=== PATIENT | female | born 1975 | race Caucasian/White ===

== ENCOUNTER 2019-07-11 14:47 | Inpatient (IN) | payer OTHER ==
[~2019-07-11] VITALS: Ht 170.2 cm; Wt 78.7 kg
[2019-07-11 15:30] LABS: INR 1.08 (0.9-1.15); Partial Thromboplastin Time 25.4 sec (23.64-32.05)
[2019-07-11 15:36] LABS: Alanine Aminotransferase 20 U/L (13-56); Albumin 4.2 g/dL (3.4-5.0); Anion Gap 11 (5-15); Aspartate Aminotransferase 17 U/L (15-37); BUN/Creatinine Ratio 18.9; Blood Urea Nitrogen 14 mg/dL (7-18); Carbon Dioxide 22 mmol/L (21-32); Chloride 107 mmol/L (98-107); GFR African American 109 mL/min; GFR Non-African American 90 mL/min; Glucose 94 mg/dL (74-106); Potassium 3.6 mmol/L (3.5-5.1); Sodium 140 mmol/L (136-145)
[2019-07-11 15:41] LABS: Alkaline Phosphatase 42 U/L (45-117); Bilirubin, Total 0.4 mg/dL (0.2-1.0); Total Protein 7.6 g/dL (6.4-8.2)
[2019-07-11] MEDS ORDERED: MORPHINE SULF INJ 2 MG/ML SYRINGE 1ML IV ONE (16:00)
[2019-07-11] MEDS ORDERED: ONDANSETRON HCL 4 MG/2 ML VIAL IV ONE (16:00)
[2019-07-11 16:26] LABS: Basophils # (auto) 0.1 uL; Eosinophils # (auto) 0 uL; Eosinophils % (auto) 0.7 % (0.0-7.0); Hematocrit 40.8 % (36.0-46.0); Hemoglobin 13.9 g/dL (12.2-16.2); Lymphocytes # (auto) 1.8 uL; Lymphocytes % (auto) 34.3 % (10.0-50.0); Mean Corpuscular Hemoglobin 31.9 pg (28.0-32.0); Mean Corpuscular Hgb Conc. 34.1 g/dL (32.0-36.0); Mean Corpuscular Volume 93.6 fL (80.0-100.0); Monocytes # (auto) 0.3 uL; Monocytes % (auto) 5.8 % (0.0-12.0); Neutrophils # (auto) 3.1 uL; Neutrophils % (auto) 58.2 % (37.0-80.0); Nucleated Red Blood Cells % 0.1 %; Platelet Count (auto) 240 10^3/uL (140-450); Red Blood Cells 4.36 10^6/uL (4.0-5.20); Red Cell Distribution Width 11.8 % (11.8-14.3); White Blood Cell 5.3 10^3/uL (4.4-10.8)
[2019-07-11 19:37] LABS: Urine WBC None Seen /hpf (0 - 5)
[2019-07-11 19:45] LABS: Urine Bacteria NONE SEEN /hpf (None Seen); Urine Blood Negative /uL (Negative); Urine Specific Gravity 1.007 (1.001-1.035)
[2019-07-11] MEDS ORDERED: LABETALOL HCL 5 MG/ML 4ML SYRINGE IV ONE (19:45)
[2019-07-11] MEDS ORDERED: ASPirin 81 mg TAB PO ONE (19:45)
[2019-07-11 20:08] LABS: Alcohol, Urine < 3.0 mg/dL (0-5); Amphetamine Screen, Urine NEGATIVE (NEGATIVE); Barbiturate Scree,Urine NEGATIVE (NEGATIVE); Benzodiazephine Screen, Urine NEGATIVE (NEGATIVE); Cannabinoid Screen, Urine NEGATIVE (NEGATIVE); Cocaine Screen, Urine NEGATIVE (NEGATIVE); Opiate Scree,Urine NEGATIVE (NEGATIVE); Phencyclidine Screen, Urine NEGATIVE (NEGATIVE)
[2019-07-11] MEDS ORDERED: NITROGLYCERIN 0.4 MG SL TAB SL PRN ×2 (21:00)
[2019-07-11] MEDS ORDERED: cloNIDine HCL 0.1 MG TAB PO PRN (21:00)
[2019-07-11] MEDS ORDERED: ACETAMINOPHEN 325 MG TAB PO PRN (21:00)
[2019-07-11] MEDS: MORPHINE SULFATE 4 MG/ML SYR/VIAL IV PRN ×2 (21:56→23:54)
[2019-07-11] MEDS: ONDANSETRON HCL 4 MG/2 ML VIAL IV PRN (21:57)
[2019-07-11] MEDS ORDERED: ATORVASTATIN 20 MG TAB PO SCH (22:00)
[2019-07-11] MEDS: METOPROLOL TARTRATE 25 MG TAB PO SCH (22:07)
[2019-07-11] MEDS: ENOXAPARIN SOD 60 MG/0.6 ML SYRINGE SC SCH (22:07)
[2019-07-11 23:55] VITALS: BP 159/91
[2019-07-11] MEDS: ZOLPIDEM TARTRATE 5 MG TAB PO PRN (23:59)
[2019-07-12] MEDS ORDERED: CLON0.1T PO (00:19)
--- NOTE | 2019-07-12 00:41 | NUR ---
Admitted 07/11/19 at 2338 Telemetry admit from ER LEANNE MERINO admitted to Telemetry unit after SBAR received. Patient oriented to ELVIRA RIVAS, ro RN, unit, room, bed, and unit policies regarding patient care and visiting hours. Patient now on continuous telemetry monitoring, tele box # 12 and telemetry reading on arrival to unit is NSR . Patient placed on bedside oxygen, weighed by bed scale and encouraged to call if they need something. All questions and concerns addressed, patient verbalized understanding. Note: c/o chest pain 7/10 pinching/burning. Dr. Ni on floor, notified. Morphine 2mg IV given. B/P 159/91, HR 86, 02 2L n/c applied.
[2019-07-12 05:36] VITALS: BP 101/73
[2019-07-12 06:31] LABS: Basophils # (auto) 0 uL; Basophils % (auto) 0.7 % (0.0-2.0); Eosinophils # (auto) 0.1 uL; Eosinophils % (auto) 1.6 % (0.0-7.0); Hematocrit 37.7 % (36.0-46.0); Hemoglobin 12.9 g/dL (12.2-16.2); Lymphocytes # (auto) 2.2 uL; Lymphocytes % (auto) 45.5 % (10.0-50.0); Mean Corpuscular Hemoglobin 32.1 pg (28.0-32.0); Mean Corpuscular Hgb Conc. 34.2 g/dL (32.0-36.0); Mean Corpuscular Volume 94.1 fL (80.0-100.0); Monocytes # (auto) 0.4 uL; Monocytes % (auto) 8.1 % (0.0-12.0); Neutrophils # (auto) 2.2 uL; Neutrophils % (auto) 44.1 % (37.0-80.0); Nucleated Red Blood Cells % 0.2 %; Platelet Count (auto) 216 10^3/uL (140-450); Red Blood Cells 4.01 10^6/uL (4.0-5.20); Red Cell Distribution Width 11.9 % (11.8-14.3); White Blood Cell 4.9 10^3/uL (4.4-10.8)
[2019-07-12 06:50] LABS: Potassium 3.6 mmol/L (3.5-5.1)
[2019-07-12 07:08] LABS: BUN/Creatinine Ratio 14.5; Calcium 8.7 mg/dL (8.5-10.1)
--- NOTE | 2019-07-12 07:45 | NUR ---
Opening Shift Note: Assumed care of patient, awake and alert. No S/S of distress/SOB or pain. Patient states "I feel much better than yesterday." Bed in lowest locked position, side rails up x2, call light within reach. Family at bedside. Patient instructed on POC and to call for assist PRN, will continue to monitor for changes Q1hr and PRN.
[2019-07-12 09:00] VITALS: BP 124/77
[2019-07-12] MEDS: ENOXAPARIN SOD 60 MG/0.6 ML SYRINGE SC SCH (09:28)
[2019-07-12] MEDS: DOCUSATE SOD 100 MG CAP PO SCH (09:29)
[2019-07-12] MEDS: LISINOPRIL 10 MG TAB PO SCH (09:29)
[2019-07-12] MEDS: METOPROLOL TARTRATE 25 MG TAB PO SCH ×2 (09:30→20:36)
[2019-07-12] MEDS: ASPirin 81 mg TAB PO SCH (09:30)
--- NOTE | 2019-07-12 09:45 | NUR ---
Dr. Ignacio: Dr Mark ignacio
[2019-07-12] MEDS ORDERED: CLOPIDOGREL BISULFATE 75 MG TAB PO SCH (10:00)
[2019-07-12] MEDS ORDERED: MAGNESIUM SULFATE 1GM/100ML 100 ML IV ONE (10:30)
[2019-07-12] MEDS ORDERED: CALCIUM GLUC 4.65meq/50ml D5AE 50 ML IV ONE (10:30)
[2019-07-12] MEDS: ONDANSETRON HCL 4 MG/2 ML VIAL IV PRN (12:38)
[2019-07-12 13:00] VITALS: BP 121/76
--- NOTE | 2019-07-12 15:25 | NUR ---
IV removal: Left hand 20 G IV partially pulled out while patient was sleeping. IV DC'd with clean sterile technique, catheter fully intact. Pressure dressing applied to site. Patient tolerated well. IV insertion: 22 guage IV access obtained, via clean sterile technique by inserting gauge catheter at left hand after 2 attempt. IV secured properly. No trauma to site. Patient tolerated well.
[2019-07-12] MEDS ORDERED: HYDROcodone-ACET 10/325MG TAB PO PRN (16:45)
[2019-07-12 17:00] VITALS: BP 136/76
[2019-07-12] MEDS ORDERED: MORPHINE SULF INJ 2 MG/ML SYRINGE 1ML IV PRN (17:00)
--- NOTE | 2019-07-12 17:04 | NUR ---
Chest pain: Patient states chest pain 7/[address] Flores. 12 Lead ekg performed at 1651. At 1653 patient states pain is "much less, maybe a 3." Dr. Flores read and signed EKG at 1656, per Dr. "NSR with no ST-changes, normal EKG." Pain reassessed at 1703, patient states pain at 2/10.
--- NOTE | 2019-07-12 19:05 | NUR ---
Closing note: Patient laying in bed, no S/S of distress or SOB. Patient states pain of 2/10. Care endorsed to NOC RN Apol.
--- NOTE | 2019-07-12 19:16 | NUR ---
Opening Shift Note Assumed care of patient, awake and alert. No S/S of distress/SOB or pain, denies chest pain. Instructed on POC and to call for assist PRN, will continue to monitor for changes Q1hr and PRN. Call ng with in reach, bed in low position.
[2019-07-12 21:40] VITALS: BP 96/55
[2019-07-12] MEDS ORDERED: ATORVASTATIN 20 MG TAB PO SCH (22:00)
[2019-07-12] MEDS: ZOLPIDEM TARTRATE 5 MG TAB PO PRN (22:07)
[2019-07-13 04:55] VITALS: BP 99/64
[2019-07-13 06:07] LABS: Basophils # (auto) 0 uL; Basophils % (auto) 0.8 % (0.0-2.0); Eosinophils # (auto) 0.1 uL; Eosinophils % (auto) 2.9 % (0.0-7.0); Hematocrit 40.3 % (36.0-46.0); Hemoglobin 13.9 g/dL (12.2-16.2); Lymphocytes # (auto) 1.8 uL; Lymphocytes % (auto) 40.5 % (10.0-50.0); Mean Corpuscular Hemoglobin 32.2 pg (28.0-32.0); Mean Corpuscular Hgb Conc. 34.4 g/dL (32.0-36.0); Mean Corpuscular Volume 93.7 fL (80.0-100.0); Monocytes # (auto) 0.4 uL; Monocytes % (auto) 9.3 % (0.0-12.0); Neutrophils % (auto) 46.5 % (37.0-80.0); Platelet Count (auto) 211 10^3/uL (140-450); Red Cell Distribution Width 11.9 % (11.8-14.3); White Blood Cell 4.4 10^3/uL (4.4-10.8)
[2019-07-13 06:31] LABS: Potassium 3.8 mmol/L (3.5-5.1)
[2019-07-13 06:46] LABS: Albumin 3.7 g/dL (3.4-5.0); BUN/Creatinine Ratio 14.6; Bilirubin, Total 0.8 mg/dL (0.2-1.0); Calcium 8.4 mg/dL (8.5-10.1); Magnesium 2.1 mg/dL (1.6-2.6); Phosphorus 3.4 mg/dL (2.5-4.90); Total Protein 6.6 g/dL (6.4-8.2)
--- NOTE | 2019-07-13 07:30 | NUR ---
Opening Shift Note Assumed care of patient, awake and alert. No S/S of distress/SOB, no pain noted or reported. Updated on POC and instructed to call for assistance as needed, patient verbalized understanding. Bed locked in lowest position, side rails up x2, call light within reach. Will continue to monitor for changes Q1hr and PRN.
[2019-07-13 09:00] VITALS: BP 121/78
[2019-07-13] MEDS: METOPROLOL TARTRATE 25 MG TAB PO SCH (09:34)
[2019-07-13] MEDS: DOCUSATE SOD 100 MG CAP PO SCH (09:35)
[2019-07-13] MEDS: LISINOPRIL 10 MG TAB PO SCH (09:35)
[2019-07-13] MEDS: ASPirin 81 mg TAB PO SCH (09:35)
[2019-07-13] MEDS ORDERED: ENOXAPARIN SOD 40 MG/0.4 ML SYRINGE SC SCH ×2 (10:00)
[2019-07-13 13:17] VITALS: BP 103/70
--- NOTE | 2019-07-13 13:40 | NUR ---
THYROID BIOPSY THYROID BIOPSY COMPLETED BY DR AYALA IN ULTRASOUND. PT TOLERATED WELL. NO BLEEDING.SPECIMEN TAKEN BY DR HERRERA PATHOLOGIST.
[2019-07-13] MEDS ORDERED: DOCU100C8 PO (15:20)
[2019-07-13] MEDS ORDERED: LISI10TA6 PO (15:20)
[2019-07-13] MEDS ORDERED: ACE325T PO (15:20)
[2019-07-13] MEDS ORDERED: ASPI81CH43 PO (15:20)
[2019-07-13] MEDS ORDERED: MET25T PO (15:20)
[2019-07-13] MEDS ORDERED: ATOR20TA50 PO (15:20)
[2019-07-13] MEDS ORDERED: CALC600T80 PO (15:26)
[2019-07-13 16:32] VITALS: BP 103/70
[2019-07-13 17:06] VITALS: BP 103/62
--- NOTE | 2019-07-13 17:45 | NUR ---
Discharge home Discharge instructions given as ordered. Encourage to follow up with PMD as instructed. Patient instructed to contact hospital pathology department for biopsy results if do not hear anything back after 07/21. All questions and concerns addressed. Patient verbalized understanding. Medication reconciliation form completed and copy given to patient. IV removed with catheter intact, pressure dressing applied. Telemetry unit returned to ICU. Patient refused to be taken to vehicle via wheelchair, patient ambulated with all personal belongings, accompanied by staff and family member. No distress noted at time of departure.
== END 2019-07-13 17:45 | disposition home or self-care (01) | DRG 644 ==
LOC: ER 14:54 → TELE 14:55 → TELE-EAST 23:22
PROVIDERS: ADMIT Hospitalist; ATTEND Hospitalist
PROC: 0GBH3ZX Excision of Right Thyroid Gland Lobe, Percutaneous Approach, Diagnostic (ICD-10-PCS; principal; 2019-07-13)
DX: E05.20 Thyrotoxicosis with toxic multinodular goiter without thyrotoxic crisis or storm (principal); I24.9 Acute ischemic heart disease, unspecified; E03.9 Hypothyroidism, unspecified; E83.42 Hypomagnesemia; E83.51 Hypocalcemia; I10 Essential (primary) hypertension; I16.0 Hypertensive urgency; F41.9 Anxiety disorder, unspecified; E78.1 Pure hyperglyceridemia; Z79.82 Long term (current) use of aspirin; Z82.49 Family history of ischemic heart disease and other diseases of the circulatory system; Z90.710 Acquired absence of both cervix and uterus; Z83.3 Family history of diabetes mellitus
CPT/HCPCS: 10022; 36415; 70450; 70490; 71046; 76536; 76942; 80048; 80053; 80061; 80307; 81001; 83735; 83880; 84100; 84436; 84439; 84443; 84484; 85025; 85379; 85610; 85730; 93005; 96374; 96375; G0378; J0610; J2405; J3490